=== PATIENT | male | born 1950 | race Caucasian/White ===

== ENCOUNTER 2021-06-09 09:00 | Outpatient (CLI) | payer MEDICARE, BC ==
[2021-06-09 21:48] LABS: SARS-CoV-2 PCR by NAA Not Detected (NotDetected)
== END 2021-06-09 09:01 | disposition home or self-care (01) ==
LOC: LABBT 09:00
PROVIDERS: ATTEND Ophthalmology Retina Specialist
DX: Z01.812 Encounter for preprocedural laboratory examination (principal); H35.372 Puckering of macula, left eye; Z20.822 Contact with and (suspected) exposure to COVID-19
CPT/HCPCS: U0003; U0005

== ENCOUNTER 2021-06-12 06:03 | Day surgery (SDC) | payer MEDICARE, BC ==
[2021-06-11 10:44] VITALS: BMI 31.9
[2021-06-12] MEDS ORDERED: Phenylephrine 2.5% Ophth Soln 5 ML BOT ONE (06:16)
[2021-06-12] MEDS ORDERED: Cyclopentolate 1% Opth Drop 2 ML BOT ONE (06:16)
[2021-06-12] MEDS ORDERED: Fentanyl 100 MCG/2 ML VIAL ONE (06:19)
[2021-06-12] MEDS ORDERED: Midazolam HCl 2 mg/2 ml Vial ONE (06:19)
[2021-06-12] MEDS ORDERED: PROPOFOL 20 ML ONE (06:20)
[2021-06-12] MEDS ORDERED: Fluorouracil 100 MG, Enoxaparin Sodium 25 MG, EPINEPHrine 0.3 MG in Ophthalmic Irrigati... IRR SCH (06:30)
[2021-06-12] MEDS ORDERED: Maxitrol 0.1% Opth Oint 3.5 GM TUBE ONE (07:05)
[2021-06-12] MEDS ORDERED: Triamcinolone 40 MG/ML VIAL ONE (07:05)
[2021-06-12] MEDS ORDERED: Bupivacaine PF 0.75% SDV 10 ML ONE (07:05)
[2021-06-12] MEDS ORDERED: CEFAZOLIN 1 GM VIAL ONE (07:05)
[2021-06-12] MEDS ORDERED: Lidocaine 4% PF 5 ML AMP ONE (07:05)
[2021-06-12] MEDS ORDERED: Indocyanine Green 25 MG/10 ML VIAL ONE (07:05)
[2021-06-12] MEDS ORDERED: Enoxaparin Sodium 30 MG/0.3 ML SYRINGE ONE (07:05)
[2021-06-12] MEDS ORDERED: Lidocaine 1% PF 5 ML VIAL ONE (07:05)
== END 2021-06-12 08:30 | disposition home or self-care (01) ==
LOC: SDC 06:03
PROVIDERS: ATTEND Ophthalmology Retina Specialist
PROC: 08T53ZZ Resection of Left Vitreous, Percutaneous Approach (ICD-10-PCS; principal; 2021-06-12)
PROC: 08NF3ZZ Release Left Retina, Percutaneous Approach (ICD-10-PCS; 2021-06-12)
DX: H35.372 Puckering of macula, left eye (principal); I10 Essential (primary) hypertension; E11.9 Type 2 diabetes mellitus without complications; M19.90 Unspecified osteoarthritis, unspecified site; Z79.82 Long term (current) use of aspirin; Z79.84 Long term (current) use of oral hypoglycemic drugs; Z79.899 Other long term (current) drug therapy
CPT/HCPCS: J0171; J0690; J1650; J2250; J2704; J3010; J3301; J3490; J9190

== ENCOUNTER 2021-07-14 08:27 | Outpatient (CLI) | payer MEDICARE, BC ==
[2021-07-14 17:47] LABS: SARS-CoV-2 PCR by NAA Not Detected (NotDetected)
== END 2021-07-14 08:28 | disposition home or self-care (01) ==
LOC: LABBT 08:27
PROVIDERS: ATTEND Ophthalmology Retina Specialist
DX: Z01.812 Encounter for preprocedural laboratory examination (principal); Z20.822 Contact with and (suspected) exposure to COVID-19
CPT/HCPCS: U0003; U0005

== ENCOUNTER 2021-07-17 05:55 | Day surgery (SDC) | payer MEDICARE, BC ==
[2021-07-16 14:58] VITALS: BMI 31.9
[2021-07-17] MEDS ORDERED: Fluorouracil 100 MG, Enoxaparin Sodium 25 MG, EPINEPHrine 0.3 MG in Ophthalmic Irrigati... IRR SCH (06:00)
[2021-07-17] MEDS ORDERED: Phenylephrine 2.5% Ophth Soln 5 ML BOT ONE (06:05)
[2021-07-17] MEDS ORDERED: Cyclopentolate 1% Opth Drop 2 ML BOT ONE (06:05)
[2021-07-17] MEDS ORDERED: Midazolam HCl 2 mg/2 ml Vial ONE (06:29)
[2021-07-17] MEDS ORDERED: Fentanyl 100 MCG/2 ML VIAL ONE (06:29)
[2021-07-17] MEDS ORDERED: PROPOFOL 20 ML ONE (06:29)
[2021-07-17] MEDS ORDERED: Triamcinolone 40 MG/ML VIAL ONE (07:00)
[2021-07-17] MEDS ORDERED: Bupivacaine PF 0.75% SDV 10 ML ONE (07:00)
[2021-07-17] MEDS ORDERED: Lidocaine 4% PF 5 ML AMP ONE (07:00)
[2021-07-17] MEDS ORDERED: Indocyanine Green 25 MG/10 ML VIAL ONE (07:00)
[2021-07-17] MEDS ORDERED: PROPOFOL 200 MG/20 ML VIAL ONE (07:00)
[2021-07-17] MEDS ORDERED: Maxitrol 0.1% Opth Oint 3.5 GM TUBE ONE (07:00)
[2021-07-17] MEDS ORDERED: Lidocaine 1% PF 5 ML VIAL ONE (07:00)
[2021-07-17] MEDS ORDERED: CEFAZOLIN 1 GM VIAL ONE (07:00)
[2021-07-17] MEDS ORDERED: Enoxaparin Sodium 30 MG/0.3 ML SYRINGE ONE (07:00)
== END 2021-07-17 08:45 | disposition home or self-care (01) ==
LOC: SDC 05:55
PROVIDERS: ATTEND Ophthalmology Retina Specialist
PROC: 08T43ZZ Resection of Right Vitreous, Percutaneous Approach (ICD-10-PCS; principal; 2021-07-17)
PROC: 08NE3ZZ Release Right Retina, Percutaneous Approach (ICD-10-PCS; 2021-07-17)
DX: H35.371 Puckering of macula, right eye (principal)
CPT/HCPCS: J0171; J0690; J1650; J2250; J2704; J3010; J3301; J3490; J9190

== ENCOUNTER 2024-10-10 20:54 | Emergency (ER) | payer MEDICARE, BC | END 2024-10-10 22:12 | disposition left against medical advice (07) | LOC: ERS 20:54 | DX: Z53.21 Procedure and treatment not carried out due to patient leaving prior to being seen by health care provider (principal) ==